=== PATIENT | male | born 1955 | race Hispanic/Latino ===

== ENCOUNTER 2018-02-16 07:30 | Day surgery (SDC) | payer OTHER ==
[2018-02-16 08:21] VITALS: BMI 31.5
[2018-02-16] MEDS ORDERED: Lactated Ringer's 1,000 ML IV ONE (08:34)
[2018-02-16] MEDS ORDERED: Propofol 10 mg/ml Inj (20 ML) ONE ×2 (08:35→09:16)
--- NOTE | 2018-02-16 08:40 | CP.SDSHP ---
Same Day Surgery H & P - History Proposed Procedure: colonoscopy Pre-Op Diagnosis: Screening for colon cancer. family h/o colon cancer - Previous Medical/Surgical History Cardiac: Hypertension Misc: Other (depression) Previous Surgical History: Oral surgery. Nasal surgery - Allergies Allergies: Allergies No Known Allergies Allergy (Verified 02/16/18 08:16) - Physical Exam Vital Signs: Vital Signs 02/16/18 08:10 Temperature 97.3 F L Pulse Rate 73 Respiratory 19 Rate Blood Pressure 147/91 H O2 Sat by Pulse 98 Oximetry Mental Status: Alert & Oriented x3 Neuro: WNL Heart: WNL Lungs: WNL GI: WNL - Impression Impression: screening for colon cancer. family h/o colon cancer Pt. Evaluated Today:Candidate for Anesthesia & Procedure: Yes - Date & Time Date: 02/16/18 Time: 08:40 Short Stay Discharge - Short Stay Discharge Admitting Diagnosis/Reason for Visit: ENCOUNTER FOR SCREENING Disposition: HOME/ ROUTINE
[2018-02-16 09:49] VITALS: RESP 14; O2SAT 99
[2018-02-16 10:34] VITALS: BP 138/82; PULSE 68; TEMP 97.2
== END 2018-02-16 10:20 | disposition home or self-care (01) ==
LOC: C.ENDO 07:30
PROVIDERS: ATTEND Internal Medicine Gastroenterology
DX: Z12.11 Encounter for screening for malignant neoplasm of colon (principal); Z80.0 Family history of malignant neoplasm of digestive organs; I10 Essential (primary) hypertension; F32.9 Major depressive disorder, single episode, unspecified; K64.1 Second degree hemorrhoids; D12.0 Benign neoplasm of cecum; D12.5 Benign neoplasm of sigmoid colon
CPT/HCPCS: 45385; 88305; J2001; J2704; J7120